=== PATIENT | male | born 1990 | race Two or more races ===

== ENCOUNTER 2018-12-01 21:05 | Emergency (ER) | payer MEDICAID ==
[~2018-12-01] VITALS: Ht 167.6 cm; Wt 77.1 kg
[2018-12-01 21:26] VITALS: BP 122/70
[2018-12-01] MEDS ORDERED: IBUPROFEN 800 MG TAB PO ONE (23:00)
== END 2018-12-01 23:49 | disposition home or self-care (01) ==
LOC: ER 21:14
DX: S50.12XA Contusion of left forearm, initial encounter (principal); S50.11XA Contusion of right forearm, initial encounter; X50.0XXA Overexertion from strenuous movement or load, initial encounter; X50.9XXA Other and unspecified overexertion or strenuous movements or postures, initial encounter; Y93.B9 Activity, other involving muscle strengthening exercises; Y92.89 Other specified places as the place of occurrence of the external cause; Y99.8 Other external cause status
CPT/HCPCS: 73090